=== PATIENT | female | born 2000 | race African-American/Black ===

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

== ENCOUNTER 2020-01-30 11:15 | Emergency (ER) | payer MEDICAID ==
[~2020-01-30] VITALS: Ht 144.8 cm; Wt 74.8 kg
[2020-01-30 11:31] VITALS: BP 117/78
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
[2020-01-30] MEDS ORDERED: METHOCARBAMOL750 MG ORAL (11:39)
[2020-01-30] MEDS ORDERED: ACETAMINOPHEN500 M3 ORAL (11:39)
[2020-01-30] MEDS ORDERED: LIDOCAINE700 M1 TP (11:39)
[2020-01-30] MEDS ORDERED: Methocarbamol 750mg tab ORAL ONE (11:45)
--- NOTE | 2020-01-30 11:46 | NUR ---
ED Nurse Note: MEDICATION DUE WAS ADMINISTERED, LIDOCAIN PATCHES WERE APLYED
[2020-01-30 13:29] VITALS: BP 117/78
--- NOTE | 2020-01-30 16:13 | Diagnostic Imaging Report ---
Indication: Traumatic pain Technique: 3 views of the lumbar spine Comparison: None Findings: Bony alignment is normal. Vertebral body heights are preserved. The disc spaces are preserved. The pedicles are intact. Sacral arches are preserved. Sacroiliac joint spaces are preserved Impression: Negative
== END 2020-01-30 13:31 | disposition home or self-care (01) ==
LOC: EMR 11:59
DX: S30.0XXA Contusion of lower back and pelvis, initial encounter (principal); M62.830 Muscle spasm of back; Y04.2XXA Assault by strike against or bumped into by another person, initial encounter; Y92.9 Unspecified place or not applicable; M51.36 Other intervertebral disc degeneration, lumbar region
CPT/HCPCS: 72020; 81025; Z7502; 99283

== ENCOUNTER 2020-02-18 23:58 | Emergency (ER) | payer MEDICAID ==
[~2020-02-18] VITALS: Ht 157.5 cm; Wt 68.0 kg
[~2020-02-18 23:58] MED LIST changes: +LIDOCAINE700 M1 TP; +METHOCARBAMOL750 MG ORAL
[2020-02-19 00:15] VITALS: BP 111/75
[2020-02-19] MEDS ORDERED: PHENAZOPYRIDIN200 MG ORAL (00:21)
[2020-02-19] MEDS ORDERED: CEPHALEXIN500 MG ORAL (00:21)
--- NOTE | 2020-02-19 00:22 | Emergency Room Report ---
History of Present Illness General Chief Complaint: Female Urogenital Problems Source: Patient Present Illness HPI This is a 19-year-old female with no past medical history she presents with chief complaint of dysuria, frequency, urgency and possibly hematuria. Onset today. Worse with urinating. Better with rest. Had history of UTI in the past. No fever chills but no nausea no vomiting. No back pain. Does states she felt bloated. Allergies: Coded Allergies: MILK (Verified Allergy, Unknown, 02/19/20) COVID-19 Screening Contact w/high risk pt: No Experienced COVID-19 symptoms?: No COVID-19 Testing performed STERILISATION TECHNICIAN: No Patient History Past Medical History: see triage record, old chart reviewed Past Surgical History: none Pertinent Family History: none Social History: Denies: smoking Now: No Immunizations: UTD Reviewed Nursing Documentation: PMH: Agreed; PSxH: Agreed Review of Systems Eye: Denies: eye pain, blurred vision ENT: Denies: ear pain, nose congestion, throat swelling Respiratory: Denies: cough, shortness of breath Cardiovascular: Denies: chest pain, palpitations Gastrointestinal: Denies: abdominal pain, diarrhea, nausea, vomiting Genitourinary: Reports: dysuria, frequency, hematuria, urgency Musculoskeletal: Denies: back pain, joint pain Skin: Denies: rash Neurological: Denies: headache, numbness Endocrine: Denies: increased thirst, increased urine Hematologic/Lymphatic: Denies: easy bruising All Other Systems: negative except mentioned in HPI Physical Exam Vital Signs Date Time Temp Pulse Resp B/P (MAP) Pulse Ox O2 Delivery O2 Flow Rate FiO2 02/19/20 00:07 98.4 79 16 111/75 (87) 98 Room Air Vitals normal Sp02 EP Interpretation: reviewed, normal General Appearance: well appearing, no apparent distress, alert Head: normocephalic, atraumatic Eyes: bilateral eye PERRL, bilateral eye EOMI ENT: hearing grossly normal, normal pharynx Neck: full range of motion, supple, no meningismus Respiratory: chest non-tender, lungs clear, normal breath sounds Cardiovascular #1: regular rate, rhythm, no murmur Gastrointestinal: normal bowel sounds, non tender, no mass, no organomegaly, no bruit, non-distended Musculoskeletal: back normal, normal range of motion, gait/station normal Psychiatric: mood/affect normal Medical Decision Making Diagnostic Impression: Primary Impression: Urinary tract infection Qualified Codes: N30.00 - Acute cystitis without hematuria ER Course Patient presents with UTI symptoms. She grew out E. coli in the past. Dose of antibiotics and Pyridium given here. No evidence of pyelonephritis or sepsis. Will discharge home. Last Vital Signs Date Time Temp Pulse Resp B/P (MAP) Pulse Ox O2 Delivery O2 Flow Rate FiO2 02/19/20 00:07 98.4 79 16 111/75 (87) 98 Room Air Status: improved Disposition: HOME, SELF-CARE Condition: Stable Scripts Cephalexin* (KEFLEX*) 500 Mg Capsule 500 MG ORAL TID, #21 CAP Prov: Pedro Carlos MD 02/19/20 Phenazopyridine Hcl* (PYRIDIUM*) 200 Mg Tablet 200 MG ORAL THREE TIMES A DAY, #14 TAB 0 Refills Prov: Pedro Carlos MD 02/19/20 Patient Instructions: Urinary Tract Infection Additional Instructions: Increase fluids. Follow-up with your doctor in 2 to 3 days for recheck if not better. Return if symptoms worsen. Pedro Carlos MD Feb 19, 2020 00:22
[2020-02-19 00:25] VITALS: BP 109/78
[2020-02-19] MEDS ORDERED: Cephalexin 500mg cap ORAL ONE (00:30)
[2020-02-19] MEDS ORDERED: Phenazopyridine 200mg tab ORAL ONE (00:30)
[2020-02-22] MEDS ORDERED: NITROFURANTOIN100 M2 ORAL (11:41)
== END 2020-02-19 00:25 | disposition home or self-care (01) ==
LOC: EMR 02-19 00:22
DX: N30.00 Acute cystitis without hematuria (principal); Z91.011 Allergy to milk products
CPT/HCPCS: 87086; 87181; Z7502; 99282

== ENCOUNTER 2020-02-29 16:31 | Emergency (ER) | payer MEDICAID ==
[~2020-02-29] VITALS: Ht 144.8 cm; Wt 74.4 kg
[~2020-02-29 16:31] MED LIST changes: +NITROFURANTOIN100 M2 ORAL
[2020-02-29 17:06] VITALS: BP 114/69
[2020-02-29 17:16] LABS: APPEARANCE,URINE SLIGHTLY CLOUDY; BILIRUBIN, URINE NEGATIVE (NEGATIVE); COLOR,URINE YELLOW; GLUCOSE, URINE (UA) NEGATIVE (NEGATIVE); KETONES,URINE NEGATIVE (NEGATIVE); LEUKOCYTE ESTERASE ,URINE NEGATIVE (NEGATIVE); NITRITE,URINE NEGATIVE (NEGATIVE); PH,URINE 6 (4.5-8.0); PROTEIN,URINE 4+ (NEGATIVE); UROBILINOGEN,URINE 1 MG/DL (0.0-1.0)
[2020-02-29 17:46] LABS: BASOPHILS % (AUTO) 1.1 % (0.0-2.0); EOSINOPHILS % (AUTO) 1.1 % (0.0-3.0); HEMATOCRIT 34.5 % (37.0-47.0); HEMOGLOBIN 10.4 G/DL (12.0-16.0); MEAN CORPUSCULAR VOLUME 77 FL (80-99); MONOCYTES % (AUTO) 8.8 % (1.0-10.0); NEUTROPHILS % (AUTO) 62.9 % (45.0-75.0); PLATELET COUNT 333 K/UL (150-450); RED BLOOD COUNT 4.49 M/UL (4.20-5.40); RED CELL DISTRIBUTION WIDTH 17.5 % (11.6-14.8)
--- NOTE | 2020-02-29 18:17 | Emergency Room Report ---
History of Present Illness General Chief Complaint: Vaginal Source: Patient Present Illness HPI 19-year-old female presents to the emergency department complaining of irregular vaginal bleeding that is lasting longer than normal. Patient reports that she has irregular periods and has gone months at a time without one before. Patient states she just had a menstrual cycle 2 and half weeks ago and states this 1 began shortly after several days. She reports dark blood and goes through 3 panty liners per day. She denies but reports that the chances there. Patient explains that she due to confucianism reasons she does not use control. Denies abdominal pain or tenderness. Denies dysuria, hematuria or urinary frequency. Patient reports she is currently finishing antibiotics for UTI she states she continues to have urgency feeling. Patient does report fibroids run in her family. She denies low back pain, fevers or chills. She denies dizziness, hx of anemia, syncope, CP, palpitations or SOB. She denies night sweats or recent significant changes in weight. She denies hx of blood dyscrasia. Pt. reports she has been taking Motrin 600mg q 6, and macrobid 100mg BID. Allergies: Coded Allergies: MILK (Verified Allergy, Unknown, 02/19/20) COVID-19 Screening Contact w/high risk pt: No Experienced COVID-19 symptoms?: No COVID-19 Testing performed COUNTER PROFESSIONAL: No Patient History Past Medical History: see triage record Past Surgical History: none Pertinent Family History: none Last Menstrual Period: 02/03/20 Now: No Reviewed Nursing Documentation: PMH: Agreed; PSxH: Agreed Nursing Documentation-PMH Past Medical History: No History, Except For Review of Systems All Other Systems: negative except mentioned in HPI Physical Exam Vital Signs Date Time Temp Pulse Resp B/P (MAP) Pulse Ox O2 Delivery O2 Flow Rate FiO2 02/29/20 16:34 98.1 95 16 114/69 (84) 99 Room Air Sp02 EP Interpretation: reviewed, normal General Appearance: no apparent distress, alert, GCS 15, non-toxic Head: normocephalic, atraumatic Eyes: bilateral eye normal inspection, bilateral eye PERRL ENT: hearing grossly normal, normal voice Neck: full range of motion Respiratory: lungs clear, normal breath sounds, speaking full sentences Cardiovascular #1: regular rate, rhythm, normal capillary refill Cardiovascular #2: 2+ radial (R), 2+ radial (L) Gastrointestinal: normal bowel sounds, non tender, soft, no peritonitis, non- distended, no guarding Rectal: deferred Genitourinary: normal inspection, no CVA tenderness, adnexa normal, deferred Musculoskeletal: back normal, normal range of motion, gait/station normal, non- tender Neurologic: alert, motor strength/tone normal, oriented x3, sensory intact, responsive, speech normal Psychiatric: judgement/insight normal Skin: no rash, normal color Lymphatic: no adenopathy Medical Decision Making PA Attestation Dr. Bazan is my supervising Physician whom patient management has been discussed with. Diagnostic Impression: Primary Impression: Metrorrhagia Additional Impression: Mild anemia ER Course 19-year-old female presents to the emergency department complaining of irregular vaginal bleeding that is lasting longer than normal. Patient reports that she has irregular periods and has gone months at a time without one before. Patient states she just had a menstrual cycle 2 and half weeks ago and states this 1 began shortly after several days. She reports dark blood and goes through 3 panty liners per day. She denies but reports that the chances there. Patient explains that she due to confucianism reasons she does not use control. Denies abdominal pain or tenderness. Denies dysuria, hematuria or urinary frequency. Patient reports she is currently finishing antibiotics for UTI she states she continues to have urgency feeling. Patient does report fibroids run in her family. She denies low back pain, fevers or chills. She denies dizziness, hx of anemia, syncope, CP, palpitations or SOB. She denies night sweats or recent significant changes in weight. She denies hx of blood dyscrasia. Pt. reports she has been taking Motrin 600mg q 6, and macrobid 100mg BID. Ddx considered but are not limited to: Fibroid, ectopic , Fibroid, Spontaneous , DUB, metrorrhagia, menorrhagia, irregular cycles. Vital signs: are WNL, pt. is afebrile H&PE are most consistent with: Non-traumatic, non-toxic patient who is NAD, c/o hx of irregular cycles presenting for prolonged vaginal bleeding. Pt. not in pain and has no other symptoms. Will r/o and critical low hgb or Red blood cells, otherwise etiology is most appropriate for outpatient evaluation. ORDERS: -Urine hcg- Negative -UA: Most indicative of contamination: presence of equal amounts of bacteria and squamous cells, no elevation in inflammatory markers, nitrite negative. CBC: Mild anemia ED INTERVENTIONS: None at this time. D/w Pt. follow up with [facility] MANAGER for more in depth evaluation such as hormones and TSH. Pt. is not hemorrhaging and does not need an emergent pelvic US. -I do not identify an emergent condition at this time. With current presentation, pt. is stable for close outpatient follow up and conservative treatment. D/w pt. to return promptly to ED with worsening or new symptoms.- Pt. verbalizes' understanding and agreement with proposed treatment plan. DISCHARGE: At this time pt. is stable for d/c to home. Will provide printed patient care instructions, and any necessary prescriptions. Care plan and follow up instructions have been discussed with the patient prior to discharge. Labs Test 02/29/20 17:08 02/29/20 17:25 Urine Color Yellow Urine Appearance Slightly cloudy Urine pH 6 (4.5-8.0) Urine Specific Arnold 1.020 (1.005-1.035) Urine Protein 4+ (NEGATIVE) Urine Glucose (UA) Negative (NEGATIVE) Urine Ketones Negative (NEGATIVE) Urine Blood 4+ (NEGATIVE) Urine Nitrite Negative (NEGATIVE) Urine Bilirubin Negative (NEGATIVE) Urine Urobilinogen 1 MG/DL (0.0-1.0) Urine Leukocyte Esterase Negative (NEGATIVE) Urine RBC 5-10 /HPF (0 - 2) Urine WBC 0-2 /HPF (0 - 2) Urine Squamous Epithelial Cells Moderate /LPF (NONE/OCC) Urine Bacteria Moderate /HPF (NONE) Urine HCG, Qualitative Negative (NEGATIVE) White Blood Count 7.0 K/UL (4.8-10.8) Red Blood Count 4.49 M/UL (4.20-5.40) Hemoglobin 10.4 G/DL (12.0-16.0) Hematocrit 34.5 % (37.0-47.0) Mean Corpuscular Volume 77 FL (80-99) Mean Corpuscular Hemoglobin 23.0 PG (27.0-31.0) Mean Corpuscular Hemoglobin Concent 30.0 G/DL (32.0-36.0) Red Cell Distribution Width 17.5 % (11.6-14.8) Platelet Count 333 K/UL (150-450) Mean Platelet Volume 6.7 FL (6.5-10.1) Neutrophils (%) (Auto) 62.9 % (45.0-75.0) Lymphocytes (%) (Auto) 26.0 % (20.0-45.0) Monocytes (%) (Auto) 8.8 % (1.0-10.0) Eosinophils (%) (Auto) 1.1 % (0.0-3.0) Basophils (%) (Auto) 1.1 % (0.0-2.0) Last Vital Signs Date Time Temp Pulse Resp B/P (MAP) Pulse Ox O2 Delivery O2 Flow Rate FiO2 02/29/20 17:06 98.1 67 16 114/69 99 Room Air Disposition: HOME, SELF-CARE Condition: Stable Scripts Iron,Carbonyl/Ascorbic Acid (IRON 100-VITAMIN C TABLET) 1 Each Tablet 1 EACH PO DAILY, #30 TAB Prov: Johnna Winters 02/29/20 Referrals: NON PHYSICIAN (PCP) Patient Instructions: Abnormal Uterine Bleeding, [id number], Metrorrhagia, [id number] Additional Instructions: ~ ~ An emergent medical condition has not been identified based on this patients presentation, exam and any necessary testing/imaging. The patient is determined to be stable for outpatient follow-up and management of symptoms by a primary care provider. Take medications as directed. Follow up with a [facility]IES MANAGER within 3-5 days, even if your symptoms have resolved. Return sooner to ED if new symptoms occur, or current symptoms become worse. - Please note that this Emergency Department Report was dictated using [employer] technology software, occasionally this can lead to erroneous entry secondary to interpretation by the dictation equipment. Johnna Winters Feb 29, 2020 18:17
[2020-02-29] MEDS ORDERED: IRON 100-VITAM1 EACH PO (18:18)
[2020-02-29 18:25] VITALS: BP 114/69
== END 2020-02-29 18:25 | disposition home or self-care (01) ==
LOC: EMR 16:51
DX: N92.1 Excessive and frequent menstruation with irregular cycle (principal); D64.9 Anemia, unspecified; Z91.011 Allergy to milk products
CPT/HCPCS: 36415; 81003; 81025; 85025; 87086; Z7502; 99284

== ENCOUNTER 2020-04-06 09:13 | Emergency (ER) | payer MEDICAID ==
[~2020-04-06] VITALS: Ht 144.8 cm; Wt 60.8 kg
[~2020-04-06 09:13] MED LIST changes: +IRON 100-VITAM1 EACH PO
[2020-04-06] MEDS ORDERED: dexAMETHasone 10mg/ml Inj IV ONE (09:30)
[2020-04-06] MEDS ORDERED: Ketorolac 30mg Inj IM ONE (09:30)
[2020-04-06 09:32] VITALS: BP 103/64
--- NOTE | 2020-04-06 09:33 | Emergency Room Report ---
History of Present Illness General Chief Complaint: Sore Throat Source: Patient Present Illness HPI Disclaimer: Please note that this report is being documented using [employer] technology. This can lead to erroneous entry secondary to incorrect interpretation by the dictating instrument. HPI: 19-year-old female with a history of tonsillitis and pharyngitis presents for evaluation of sore throat. Symptoms present 2 days. She notes pain with swallowing and slightly muffled voice but denies inability to tolerate secretions or throat closure sensations. She felt feverish last night but no objective temperature readings were taken. She reports swelling in the lower throat swollen lymph nodes. Denies nausea, vomiting, cough, shortness of breath, headaches or other symptoms. She has had tonsillitis in the past but no recent antibiotics. Has not yet been scheduled for surgery. No other symptoms reported. PMH: Recurrent tonsillitis PSH: Reviewed Allergies: Milk Social Hx: None Allergies: Coded Allergies: MILK (Verified Allergy, Unknown, 02/19/20) COVID-19 Screening Contact w/high risk pt: No Experienced COVID-19 symptoms?: Yes COVID-19 Testing performed WIRE FRAME MAKER: No Patient History Last Menstrual Period: 03/26/2020 Now: No Nursing Documentation-PMH Past Medical History: No Stated History Review of Systems All Other Systems: negative except mentioned in HPI Physical Exam Vital Signs Date Time Temp Pulse Resp B/P (MAP) Pulse Ox O2 Delivery O2 Flow Rate FiO2 04/06/20 09:18 99.1 108 20 103/64 (77) 95 Room Air General: Awake and alert, appears mildly uncomfortable, afebrile HEENT: NC/AT. EOMI. PERRLA. Anicteric sclera. Uvula is midline. Tonsils are 3+ edematous and erythematous with overlying exudate bilaterally. There is tender submandibular lymph nodes bilaterally. Tolerating secretions. Resp: Normal work of breathing Skin: Intact. No abrasions, laceration or rash over the exposed skin MSK: Normal tone and bulk. Moving all extremities. No obvious deformity. Neuro: Awake and alert. Mentating appropriately Medical Decision Making Diagnostic Impression: Primary Impression: Tonsillitis ER Course 19-year-old female presents for evaluation of sore throat. Pain rotation consistent with acute tonsillitis. Centor score is moderate to high. Patient will be treated with amoxicillin, Decadron, Toradol in the ED and continued on amoxicillin and prednisone for a few days. She should follow up with her ENT surgeon and have a rediscussion regarding surgical excision due to recurrent infection. She is afebrile, tolerating secretions. Instructed to monitor condition closely and if it deteriorates to return to the nearest emergency department as soon as possible. She understands and agrees with the treatment plan will be discharged home. Last Vital Signs Date Time Temp Pulse Resp B/P (MAP) Pulse Ox O2 Delivery O2 Flow Rate FiO2 04/06/20 09:18 99.1 108 20 103/64 (77) 95 Room Air Disposition: HOME, SELF-CARE Condition: Stable Scripts Prednisone* (PREDNISONE*) 20 Mg Tablet 40 MG ORAL DAILY for 2 Days, #4 TAB Prov: Henrik Beck MD 04/06/20 Amoxicillin* (AMOXIL*) 500 Mg Capsule 500 MG ORAL BID, #20 CAP Prov: Henrik Beck MD 04/06/20 Referrals: [facility] Patient Instructions: Tonsillitis Additional Instructions: Please follow-up with your primary care doctor in the next 1 to 3 days to discuss this emergency department visit and for reevaluation. Discussed whether or not your tonsils should be removed due to recurrent infection. If you have any new or worsening symptoms please return to the emergency department for reevaluation. Please note that this report is being documented using [employer] technology. This can lead to erroneous entry secondary to incorrect interpretation by the [employer] instrument. Henrik Beck MD Apr 06, 2020 09:33
[2020-04-06] MEDS ORDERED: PREDNISONE20 MG ORAL (09:41)
[2020-04-06] MEDS ORDERED: AMOXICILLIN500 MG ORAL (09:41)
[2020-04-06 09:45] VITALS: BP 103/64
== END 2020-04-06 09:45 | disposition home or self-care (01) ==
LOC: EMR 09:25
DX: J03.90 Acute tonsillitis, unspecified (principal); Z91.011 Allergy to milk products
CPT/HCPCS: 96372; 96374; J1885; Z7502; 99284